=== PATIENT | female | born 1940 | race Caucasian/White ===

== ENCOUNTER 2022-01-27 11:17 | Emergency (ER) | payer MEDICARE, OTHER ==
[~2022-01-27] VITALS: Ht 167.6 cm; Wt 63.6 kg
[~2022-01-27 11:17] MED LIST: ASPI-1265 PO; CALC-245 PO; GLUC-178 PO; IRBE300T10 PO; NAPR-706 PO; NOR5T PO
[2022-01-27 11:37] LABS: BASOPHILS % (AUTO) 0.6 % (0-1); EOSINOPHILS # (AUTO) 0.1 X10'3 (0-0.9); HEMATOCRIT 40.8 % (35.0-45.0); HEMOGLOBIN 13.5 g/dl (12.0-16.0); LYMPHOCYTES # (AUTO) 1.4 X10'3 (1.1-4.8); LYMPHOCYTES % (AUTO) 18.7 % (21-51); MEAN CORPUSCULAR HEMOGLOBIN 33.5 PG (27.0-31.0); MEAN CORPUSCULAR HGB CONC 32.9 g/dL (33.0-36.5); MEAN CORPUSCULAR VOLUME 101.8 FL (78-98); MEAN PLATELET VOLUME 7.5 FL (7.4-10.4); MONOCYTES # (AUTO) 0.4 X10'3 (0-0.9); MONOCYTES % (AUTO) 5.8 % (2-12); NEUTROPHILS # (AUTO) 5.5 X10'3 (1.8-7.7); NEUTROPHILS % (AUTO) 73.9 % (42-75); PLATELET COUNT 317 X10'3 (140-440); RED BLOOD COUNT 4.01 X10'6 (4.20-5.60); RED CELL DISTRIBUTION WIDTH 13.1 % (11.5-14.5); WHITE BLOOD COUNT 7.4 X10'3 (4.5-11.0)
[2022-01-27 11:47] LABS: ALANINE AMINOTRANSFERASE 46 U/L (12-78); ALBUMIN/GLOBULIN RATIO 0.8 (1.1-1.5); ALKALINE PHOSPHATASE 113 IU/L (46-116); ANION GAP 5 (8-16); ASPARTATE AMINO TRANSFERASE 37 U/L (10-37); BILIRUBIN,TOTAL 0.4 MG/DL (0.1-1.0); BLOOD UREA NITROGEN 16 MG/DL (7-18); BUN/CREATININE RATIO 18.6 (6.6-38.0); CALCIUM 9.9 MG/DL (8.5-10.1); CHLORIDE 105 MMOL/L (99-107); CREATININE 0.86 MG/DL (0.40-0.90); GLUCOSE 102 MG/DL (70-104); POTASSIUM 4.4 MMOL/L (3.5-5.1); SODIUM 139 MMOL/L (135-145); TOTAL CARBON DIOXIDE 28.8 MMOL/L (24-32); TOTAL PROTEIN 6.9 G/DL (6.4-8.2); eGFR 63 ML/MIN
[2022-01-27 11:58] VITALS: BP 150/81
[2022-01-27 12:20] LABS: MAGNESIUM 2.1 MG/DL (1.5-2.4)
[2022-01-27] MEDS ORDERED: furosemide 40mg/4ml inj IV ONE (20:35)
[2022-01-27] MEDS ORDERED: furosemide 10 MG/1 ML 10ml inj IV ONE (20:40)
[2022-01-27] MEDS ORDERED: FURO-150 PO (22:00)
== END 2022-01-27 22:13 | disposition home or self-care (01) ==
LOC: ER 11:17
DX: I11.0 Hypertensive heart disease with heart failure (principal); I50.9 Heart failure, unspecified; R06.02 Shortness of breath; I48.91 Unspecified atrial fibrillation; E03.9 Hypothyroidism, unspecified; M19.90 Unspecified osteoarthritis, unspecified site; Z87.01 Personal history of pneumonia (recurrent); Z98.890 Other specified postprocedural states; Z79.82 Long term (current) use of aspirin; Z79.899 Other long term (current) drug therapy
CPT/HCPCS: 36415; 71045; 80053; 83735; 83880; 84484; 85025; 93005; 96374; 99285; J1940

== ENCOUNTER 2022-02-20 10:09 | Day surgery (SDC) | payer MEDICARE, OTHER ==
[2022-02-19 11:02] LABS: BASOPHILS # (AUTO) 0.1 X10'3 (0-0.2); BASOPHILS % (AUTO) 1.1 % (0-1); EOSINOPHILS # (AUTO) 0.2 X10'3 (0-0.9); EOSINOPHILS % (AUTO) 3.1 % (0-6); HEMATOCRIT 43.3 % (35.0-45.0); HEMOGLOBIN 14.3 g/dl (12.0-16.0); LYMPHOCYTES # (AUTO) 1.4 X10'3 (1.1-4.8); LYMPHOCYTES % (AUTO) 24.1 % (21-51); MEAN CORPUSCULAR HEMOGLOBIN 33.4 PG (27.0-31.0); MEAN CORPUSCULAR HGB CONC 32.9 g/dL (33.0-36.5); MEAN CORPUSCULAR VOLUME 101.5 FL (78-98); MEAN PLATELET VOLUME 8.1 FL (7.4-10.4); MONOCYTES # (AUTO) 0.6 X10'3 (0-0.9); MONOCYTES % (AUTO) 11.2 % (2-12); NEUTROPHILS # (AUTO) 3.5 X10'3 (1.8-7.7); NEUTROPHILS % (AUTO) 60.5 % (42-75); PLATELET COUNT 151 X10'3 (140-440); RED BLOOD COUNT 4.27 X10'6 (4.20-5.60); RED CELL DISTRIBUTION WIDTH 13.4 % (11.5-14.5); WHITE BLOOD COUNT 5.8 X10'3 (4.5-11.0)
[2022-02-19 11:06] LABS: ALBUMIN 3.3 G/DL (3.4-5.0); ANION GAP 5 (8-16); BLOOD UREA NITROGEN 24 MG/DL (7-18); BUN/CREATININE RATIO 25.8 (6.6-38.0); CALCIUM 9.4 MG/DL (8.5-10.1); CHLORIDE 105 MMOL/L (99-107); CREATININE 0.93 MG/DL (0.40-0.90); GLUCOSE 82 MG/DL (70-104); POTASSIUM 4.7 MMOL/L (3.5-5.1); SODIUM 138 MMOL/L (135-145); TOTAL CARBON DIOXIDE 28.3 MMOL/L (24-32); eGFR 58 ML/MIN
[2022-02-19 11:07] LABS: APTT 25 SECONDS (22-32)
[~2022-02-20] VITALS: Ht 167.6 cm; Wt 61.6 kg
[2022-02-20] VITALS (12 sets, daily range): BP systolic 110–137; BP diastolic 53–90
[~2022-02-20 10:09] MED LIST changes: +FURO-150 PO
[2022-02-20] MEDS ORDERED: diphenhydrAMINE 25mg capsule PO PRN (10:30)
[2022-02-20] MEDS ORDERED: LORazepam 0.5 MG tablet PO PRN (10:30)
[2022-02-20] MEDS ORDERED: KRIL500C PO (10:45)
[2022-02-20] MEDS ORDERED: CARV6.2553 PO (10:45)
[2022-02-20] MEDS ORDERED: VALS160T30 PO (10:45)
[2022-02-20] MEDS ORDERED: FURO40TA4 PO (10:45)
[2022-02-20] MEDS ORDERED: POTA20PA40 PO (10:45)
[2022-02-20] MEDS ORDERED: CHOL100025 PO (10:45)
[2022-02-20] MEDS ORDERED: APIX5TAB3 PO (10:45)
[2022-02-20] MEDS ORDERED: FLEC100T35 PO (10:45)
[2022-02-20] MEDS ORDERED: TAMO20TA4 PO (10:45)
[2022-02-20] MEDS ORDERED: midazolam 1 mg/ML 2ml injection ONE (11:12)
[2022-02-20] MEDS ORDERED: FENTANYL CITRATE/PF 50 MCG/1 ML VIAL ONE (11:12)
[2022-02-20] MEDS ORDERED: LIDOcaine 1% (10mg/ml) 2ml vial ONE (11:12)
[2022-02-20] MEDS ORDERED: verapamil 2.5 mg/ml inj IV ONE (11:12)
[2022-02-20] MEDS ORDERED: iohexol 350 MG/ML 50ML vial IV ONE (11:13)
[2022-02-20] MEDS ORDERED: iohexol 350MG/ML 100ml bottle IV ONE (11:13)
[2022-02-20] MEDS ORDERED: nitroGLYCERIN-Tridil 50MG/D5W 250 ML IV ONE (11:13)
[2022-02-20] MEDS ORDERED: heparin 1,000unit/ml 10ml vial 10 ML ONE (11:13)
[2022-02-20] MEDS ORDERED: normal saline 1000ml 1,000 ML IV SCH (11:30)
--- NOTE | 2022-02-20 13:15 | NUR ---
Bedside report received from DARION Crum. Right radial stable with vasc band in place. No bleeding/hematoma noted. Vital signs stable. 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
[2022-02-23 07:41] LABS: ISTAT Hct MIX 37 %PCV (35-45); ISTAT O2 SATURATION MIX VENOUS 64 % (60-80); ISTAT SOURCE VEN
[2022-02-24 07:41] LABS: ISTAT HGB ART 12.9 g/dl (12.0-16.0); ISTAT Hct ART 38 %PCV (35-45); ISTAT O2 SATURATION ARTERIAL 91 % (95-98); ISTAT SOURCE ART
== END 2022-02-20 18:45 | disposition home or self-care (01) ==
LOC: SSTAY O 10:09
PROVIDERS: ATTEND Internal Medicine Cardiovascular Disease
DX: I25.10 Atherosclerotic heart disease of native coronary artery without angina pectoris (principal); I48.91 Unspecified atrial fibrillation; I34.1 Nonrheumatic mitral (valve) prolapse; I10 Essential (primary) hypertension; E78.5 Hyperlipidemia, unspecified; I34.0 Nonrheumatic mitral (valve) insufficiency; I36.1 Nonrheumatic tricuspid (valve) insufficiency; Z82.49 Family history of ischemic heart disease and other diseases of the circulatory system
CPT/HCPCS: 36415; 76937; 80048; 82803; 85014; 85025; 85610; 85730; 93005; 93460; 99152; A6258; C1751; C1769; C1894; J1644; J2250; J3010; J3490; J7030; Q0163; Q9967; 99153; A6402; C1725

== ENCOUNTER 2022-03-04 06:01 | Day surgery (SDC) | payer MEDICARE, OTHER ==
[2022-03-03 10:41] LABS: BASOPHILS # (AUTO) 0.1 X10'3 (0-0.2); BASOPHILS % (AUTO) 1.1 % (0-1); EOSINOPHILS # (AUTO) 0.2 X10'3 (0-0.9); EOSINOPHILS % (AUTO) 4.4 % (0-6); HEMATOCRIT 40.5 % (35.0-45.0); HEMOGLOBIN 13.8 g/dl (12.0-16.0); LYMPHOCYTES # (AUTO) 1.1 X10'3 (1.1-4.8); LYMPHOCYTES % (AUTO) 19.4 % (21-51); MEAN CORPUSCULAR HEMOGLOBIN 34.5 PG (27.0-31.0); MEAN CORPUSCULAR HGB CONC 34.1 g/dL (33.0-36.5); MEAN CORPUSCULAR VOLUME 101.1 FL (78-98); MEAN PLATELET VOLUME 7.8 FL (7.4-10.4); MONOCYTES # (AUTO) 0.6 X10'3 (0-0.9); MONOCYTES % (AUTO) 9.7 % (2-12); NEUTROPHILS # (AUTO) 3.7 X10'3 (1.8-7.7); NEUTROPHILS % (AUTO) 65.4 % (42-75); PLATELET COUNT 219 X10'3 (140-440); RED BLOOD COUNT 4.01 X10'6 (4.20-5.60); RED CELL DISTRIBUTION WIDTH 13.2 % (11.5-14.5); WHITE BLOOD COUNT 5.7 X10'3 (4.5-11.0)
[2022-03-03 10:43] LABS: ANION GAP 5 (8-16); BLOOD UREA NITROGEN 23 MG/DL (7-18); BUN/CREATININE RATIO 21.3 (6.6-38.0); CALCIUM 9.3 MG/DL (8.5-10.1); CHLORIDE 105 MMOL/L (99-107); CREATININE 1.08 MG/DL (0.40-0.90); GLUCOSE 87 MG/DL (70-104); POTASSIUM 4.2 MMOL/L (3.5-5.1); SODIUM 139 MMOL/L (135-145); TOTAL CARBON DIOXIDE 28.6 MMOL/L (24-32); eGFR 49 ML/MIN
[2022-03-04] VITALS (12 sets, daily range): BP systolic 99–121; BP diastolic 59–74
[~2022-03-04] VITALS: Ht 167.6 cm; Wt 64.8 kg
[~2022-03-04 06:01] MED LIST changes: +APIX5TAB3 PO; -ASPI-1265 PO; +CARV6.2553 PO; +CHOL100025 PO; +FLEC100T35 PO; -FURO-150 PO; +FURO40TA4 PO; -IRBE300T10 PO; +KRIL500C PO; -NAPR-706 PO; +POTA20PA40 PO; +TAMO20TA4 PO; +VALS160T30 PO
[2022-03-04] MEDS ORDERED: diphenhydrAMINE 25mg capsule PO ONE (06:25)
[2022-03-04] MEDS ORDERED: LORazepam 0.5 MG tablet PO ONE (06:25)
[2022-03-04] MEDS ORDERED: amiodarone 150mg/dext, iso-os 100 ML IV ONE (06:25)
[2022-03-04] MEDS ORDERED: MIDAZolam 1mg/ml 10ml vial IV ONE (06:25)
[2022-03-04] MEDS ORDERED: atropine 0.1mg/ml 10ml syringe IV ONE (06:25)
[2022-03-04] MEDS ORDERED: normal saline 1000ml 1,000 ML IV SCH (06:25)
[2022-03-04] MEDS ORDERED: morphine 10mg/ml inj. IV ONE (06:25)
[2022-03-04] MEDS ORDERED: CARV6.253 PO (06:27)
[2022-03-04] MEDS ORDERED: AMIO200T62 PO (06:27)
== END 2022-03-04 10:30 | disposition home or self-care (01) ==
LOC: SSTAY O 06:01
PROVIDERS: ATTEND Internal Medicine Cardiovascular Disease
DX: I48.91 Unspecified atrial fibrillation (principal); I25.10 Atherosclerotic heart disease of native coronary artery without angina pectoris; I11.0 Hypertensive heart disease with heart failure; I50.9 Heart failure, unspecified; E78.5 Hyperlipidemia, unspecified; I08.1 Rheumatic disorders of both mitral and tricuspid valves; Z79.899 Other long term (current) drug therapy; Z85.3 Personal history of malignant neoplasm of breast; Z98.890 Other specified postprocedural states; Z90.11 Acquired absence of right breast and nipple; Z82.49 Family history of ischemic heart disease and other diseases of the circulatory system
CPT/HCPCS: 36415; 80048; 85025; 85610; 92960; 93005; J0282; J2250; J2274; J7030; Q0163; A4620

== ENCOUNTER 2022-05-13 13:30 | Outpatient (CLI) | payer MEDICARE, OTHER ==
[~2022-05-13 13:30] MED LIST changes: +AMIO200T62 PO; +CARV6.253 PO; -CARV6.2553 PO; -FLEC100T35 PO
== END 2022-05-13 23:59 | disposition home or self-care (01) ==
LOC: CARD DIAG 13:30
PROVIDERS: ATTEND Internal Medicine Cardiovascular Disease
DX: I08.1 Rheumatic disorders of both mitral and tricuspid valves (principal)
CPT/HCPCS: 93306